=== PATIENT | female | born 1965 | race Caucasian/White ===

== ENCOUNTER → 2017-11-21 09:29 | Outpatient (CLI) | payer OTHER, SELFPAY ==
[2017-11-21 11:45] LABS: Free T3 2.4 pg/mL (2.18-3.98); T4 Free Direct 1.35 ng/dL (0.76-1.46); Thyroid Stim Hormone (TSH) 2.01 uIU/mL (0.358-3.74)
== END ==
PROVIDERS: Family Provider Internal Medicine; PCP Internal Medicine; Visit Provider Nurse Practitioner
DX: E07.9 Disorder of thyroid, unspecified (principal)
CPT/HCPCS: 36415; 84439; 84443; 84481

== ENCOUNTER → 2018-02-07 11:06 | Outpatient (CLI) | payer OTHER, SELFPAY ==
--- NOTE | 2018-02-07 11:09 | US_ITS ---
STUDY: THYROID ULTRASOUND REASON FOR EXAM: Female, 52 years old. Hypothyroidism TECHNIQUE: Ultrasound evaluation of the thyroid was performed with real-time and static chong-scale imaging. COMPARISON: 06/29/2016 FINDINGS: RIGHT LOBE: The right lobe of the thyroid gland measures 2.5 x 1.1 x 0.6 cm. There is a heterogeneous echotexture. There are no demonstrated solid, cystic or complex lesions. LEFT LOBE: The left lobe of the thyroid gland measures 2.1 x 0.8 x 0.5 cm. There is a heterogeneous echotexture. There are no demonstrated solid, cystic or complex lesions. ISTHMUS: The isthmus measures 1.0 mm. The regional lymph nodes are normal. US/Thyroid IMPRESSION: 1. No solid or cystic thyroid nodules. 2. Small, heterogeneous thyroid gland suggesting chronic thyroiditis. Electronically Signed: Cesario Pink MD at 17:56 EDT , Service support ,
== END ==
PROVIDERS: Family Provider Internal Medicine; PCP Internal Medicine; Visit Provider Nurse Practitioner
DX: E03.9 Hypothyroidism, unspecified (principal)
CPT/HCPCS: 76536

== ENCOUNTER → 2021-03-01 07:45 | Outpatient (CLI) | payer OTHER, SELFPAY ==
--- NOTE | 2021-03-01 07:49 | BI_ITS ---
MAMMOGRAPHY - BILATERAL SCREENING 3-D TOMOSYNTHESIS REASON FOR EXAM: Female, 55 years old. SCREENING PERTINENT HISTORY: No significant family history. TECHNIQUE: 2-D mammograms and 3-D Tomosynthesis of the breast (s) were performed. CAD was performed. COMPARISON: 03/31/2015 FINDINGS: The breast composition is composed of scattered fibroglandular density. Scattered benign calcifications are seen. No dense spiculated masses or suspicious microcalcifications are identified. No architectural distortion is identified. There is no skin thickening or retraction. There has been no significant change since the prior study. BI/SCRN MAMM (CAD)W/ISAIAH BILAT IMPRESSION: No mammographic signs of malignancy. Routine yearly mammograms recommended. ASSESSMENT CATEGORY: BIRADS Category 1: Negative. A letter regarding these results will be sent to the patient by the facility within 30 days. FOLLOW UP RECOMMENDATION: Yearly follow up mammogram recommended. (A) Approximately 10% of breast cancers are not detected by mammography. A normal mammogram should not delay biopsy of a clinically suspicious abnormality. Electronically Signed: Wil Amato MD at 9:22 EDT Tel , Service support ,
== END ==
PROVIDERS: PCP Internal Medicine; Referring Provider Internal Medicine; Visit Provider Internal Medicine
DX: Z12.31 Encounter for screening mammogram for malignant neoplasm of breast (principal)
CPT/HCPCS: 77063; 77067

== ENCOUNTER 2021-11-26 08:19 | Day surgery (SDC) | payer OTHER, SELFPAY ==
[2021-11-26] VITALS (8 sets, daily range): BP systolic 85–119; BP diastolic 58–82; PULSE 69–78; RESP 18; TEMP 36.5–36.6; O2SAT 96–100; BMI 36.6
[2021-11-26] MEDS: Lactated Ringers 1,000 ML 15 ML IV (08:30)
--- NOTE | 2021-11-26 08:57 | PCM.HP.BLA ---
History and Physical Date of Admission: 11/26/21 Intake Visit Reasons: COLONOSCOPY AND HERNIA Chief Complaint: c-scope/ umb hernia Boat Worker Required: No Is patient in pain?: No Allergies levofloxacin [From Levaquin] Allergy (Intermediate, Verified 09/16/21 08:29) hives methimazole [From Tapazole] Allergy (Intermediate, Verified 09/16/21 08:29) hives Sulfa (Sulfonamide Antibiotics) Allergy (Unknown, Verified 09/16/21 08:29) Unknown Medications aspirin 81 mg tablet,delayed release 81 mg PO QDAY 11/21/17 [History Confirmed 09/16/21] calcium carbonate 600 mg calcium (1,500 mg) tablet 600 mg PO QDAY tab 11/21/17 [History Confirmed 09/16/21] carvedilol 12.5 mg tablet 12.5 mg PO BID 11/21/17 [History Confirmed 09/16/21] cholecalciferol (vitamin D3) 50 mcg (2,000 unit) capsule 2,000 unit PO QDAY 11/21/17 [History Confirmed 09/16/21] calcitriol 0.25 mcg capsule 0.25 mcg PO QDAY 12/21/17 [History Confirmed 09/16/21] pantoprazole 40 mg tablet,delayed release ea PO 07/16/21 [History Confirmed 09/16/21] levothyroxine 112 mcg capsule 112 mcg PO DAILY 09/16/21 [History Confirmed 09/16/21] [facility] Medical History Cardiomyopathy H/O blood clots H/O transfusion of whole blood Hives Hypothyroidism Obesity Parathyroid abnormality Seasonal allergies Vitamin D deficiency Surgical History femur surgery H/O right heart catheterization Family History Mother Arthritis Father Arthritis Heart disease Kidney disease CVA (cerebral vascular accident) Cancer Sister Cancer Breast cancer Other Alcohol abuse Colon cancer Osteoporosis Thyroid disorder Social History Smoking Status: Never smoker second hand exposure: No alcohol intake: current alcohol intake frequency: a few times a month Alcohol type: beer substance use type: does not use what type of physical activity do you participate in: walking frequency: 1-2 times per week HPI HPI HPI: FEDE MONTANEZ, is a 56 F who presents to the office today for surgical consultation regarding a screening colonoscopy and a hernia. The patient is referred by Dr. Eduarda Baeza and a written copy my surgical consult recommendations will return to him. The patient was to present via open access. Patient has a sister who from colorectal cancer. The patient is on a low-dose aspirin. She is complaining of abdominal pain but states that this is secondary to her hernias. Because of her additional issues it was felt best for the patient to be seen in the office prior to her colonoscopy. Patient has she is quite complex. She has ongoing gastroesophageal reflux disease. She requires proton pump inhibitor therapy or she gets severe heartburn. She has abdominal pain complaints. She has had to do a lot of caretaking at home of older relatives. And she will complain of pain right at the umbilical area. Dating back to March 01, 2018 at [facility] she had a CT scan of the abdomen pelvis. That was otherwise unremarkable except for a small fat-containing umbilical hernia. She had some degenerative changes of the lumbar spine. She herself cannot feel the umbilical hernia. She has never liked her umbilicus touched. She is complaining of tenderness of the right medial malleolar area. She did start a low-dose aspirin. She has had what sounds like a previous history of deep venous thrombosis several years ago and states that she was on Lovenox injections for a month. She states that she has been previously measured and fitted for support hose but that they have never fit her appropriately. She does occasionally use an Benjamin wrap. She has been referred to Dr. Beka Hamilton. She has not yet received a phone call from that office. She has had Covid-19 twice. Once in June 2020 which she had cough and shortness of breath. Then again July 2021 with diarrhea achiness cough. She did take monoclonal antibody on this occasion. She feels that she is markedly improved but still has occasional cough. She denies any bright red blood per rectum or melena. No change in bowel caliber. No unexpected weight loss. ROS General General: No weight change, appetite, fatigue, colon cancer, breast cancer or weakness HEENT HEENT: No difficulty swallowing, eye injury, eye surgery, swollen glands or hoarseness Endo Endocrine: Yes thyroid disease; No diabetes mellitus, thyroid cancer, Hair loss, heat intolerance or cold intolerance Skin Skin: No rash or changing moles Breast Breast: No left breast lump, right breast lump, nipple discharge, breast pain, abnormal mammogram, abnormal US or breast enlargement Musc Musculoskeletal: No back problems, arthritis, rheumatoid arthritis, gout or joint pain Cardio Cardiovascular: No murmur, pacemaker, heart disease, atrial fibrillation, high blood pressure, heart attack, heart stent, palpitations, shortness of breat with exertion or chest pain Psych Psychiatric: No depression, anxiety or hearing voices Resp Respiratory: Yes shortness of breath, Yes sleep apnea, No cough, No COPD, No asthma, No emphysema and No wheezing Gastro Gastrointestinal: Yes abdominal pain, No nausea or vomiting, Yes diarrhea, No constipation, No blood in stool, Yes acid reflux, No hemorrhoids, No ulcers, No gallbladder problem and No black,tarry stools Valente Hematologic: No blood thinners, No blood disorders, No bleeding, No anemia and Yes blood clots Neuro Neurologic: No system reviewed and no additional complaints, except as documented, No as per HPI, No abnormal gait, No abnormal hearing, No abnormal movements, No abnormal speech, No behavioral changes, No burning sensations, No confusion, No convulsions, No disequilibrium, No dizziness, No localized weakness, No frequent falls, No headache(s), No lack of coordination, No loss of vision, No memory loss, No numbness, No other visual disturbances, No radicular pain, No restless legs, No sensory deficit, No syncope, No tingling, No tremor(s), No weakness and No other Exam Const General: cooperative and no acute distress Nutritional Appearance: obese morbidly obese [facility] Head: normal to inspection Eyes General: appearance normal, both eyes and all related structures Neck Neck: normal visual inspection Resp Effort & Inspection: normal respiratory effort Auscultation: clear to auscultation bilaterally Cardio Rate: regular rate Rhythm: regular rhythm GI Other: Patient examined both upright and supine. Focal tenderness directly at the umbilicus. Suggestion of a deeply placed Other: No gross inguinal defects noted Musc Cervical Spine: normal cervical lordosis Neuro General: patient alert and patient awake Extrem General: no calf tenderness Other: Right medial malleolus focal area of superficial induration and tenderness. Psych Appearance: grossly normal Assessment and Plan Assessment and Plan (1) Obesity: Status: Acute Qualifiers: Body mass index: BMI 37.0-37.9 Obesity classification: adult class 2 (BMI 35 - 39.9) Obesity type: due to excess calories Serious obesity comorbidity presence: without serious comorbidity Qualified Code(s): E66.09 - Other obesity due to excess calories; Z68.37 - Body mass index [BMI] 37.0-37.9, adult (2) Family history of colon cancer: Status: Acute (3) Thrombophlebitis: Status: Acute (4) GERD (gastroesophageal reflux disease): Status: Acute Qualifiers: Esophagitis presence: esophagitis presence not specified Qualified Code(s): K21.9 - Gastro-esophageal reflux disease without esophagitis (5) History of COVID-19: Status: Acute Plan - Dr. Israel Dean MD: I recommended the patient a combined esophagogastroduodenoscopy with possible biopsy and colonoscopy with possible biopsy or polypectomy as indicated. She has had an opportunity to ask and have questions answered. We will utilize monitored anesthesia care. Clinically the patient has thrombophlebitis of the right medial malleolar area. I did recommend support hose but she states that even with fitting these do not wear well for her. She will continue her low-dose aspirin and use previously recommended Benjamin wrap. We will see if we can assist with her referral to Dr. Beka Hamilton and I will defer the duplex imaging of his choice. Regarding her Covid-19. She is considering future vaccine and this was additionally discussed. Regarding her umbilical hernia. At rest it is comfortable. It is only with straining that it symptomatic. Clinically and based upon the previous CT report there does not appear to be bowel involvement. The patient is aware that she would be at increased perioperative risk of hernia recurrence secondary to body habitus. Encouragement was provided for weight loss prior to potential surgical intervention. She has had an opportunity to ask and have questions answered. I very much appreciate the kind opportunity of assisting with her surgical care. Copy: Dr. Eduarda Dean M.D., F.A.C.S. I have re-examined the patient. There are no clinical changes since date of exam.
--- NOTE | 2021-11-26 09:15 | IMM_PTH ---
PATIENT: FEDE MONTANEZ LOC: EN U#:[id number] AGE/SX: 56/F ROOM: RE11/26/[address]: Dr. Israel Dean MD : 1965 BED: DIS: 11/26/2021 SPEC #: [id number] RECD: 11/30/21 09:40 STATUS: VIRGIL REClinton #: [id number] CASE: 11/26/21 09:[address]: Israel Dean DEPT: IMMUNOHISTOCHEMISTRY RECD BY: Earline Wilson ENTERED: 11/30/21 09:40 SP TYPE: IMMUNO OTHR DR: Dr. Eduarda Baeza MD Tissues: A - Stomach, NOS C - Esophagus, NOS Procedures: H Pylori (initial) P53 (initial) KI-67 (add) PHYSICIAN & INSTITUTION [place] [address] SPECIMEN INFORMATION: Tissue Source: A ? Antrum biopsy, C ? Distal esophagus biopsy Clinical Info: GERD Specimen Number: [id number] A & C CPT code: 45362 x2, 92461 METHODOLOGY: Deparaffinized sections of prefer/formalin-fixed tissue or PAP/DQ stained slides are incubated with monoclonal/polyclonal antibodies/oligonucleotide probes. Localization is made via biotin free immunoperoxidase method. Appropriate controls are performed and reacted as expected. Results on target cell population are indicated in the following table: RESULTS: ANTIBODY / CLONE RESULT Block A H Pylori (polyclonal) negative Block C P53 (DO-7) negative Ki-67 (30-9) positive, low These tests were developed and their performance characteristics determined by [facility]. They may not have been cleared or approved by the U.S. Food and Drug Administration. The FDA has determined that such clearance or approval is not necessary. The above immunohistochemical/dualISH markers are ordered and reviewed by the Pathologist. INTERPRETATION: A. Antrum, biopsy: Negative for Helicobacter pylori organisms. C. Distal esophagus, biopsy: No evidence of dysplasia. AM:rashel 12/02/2021
--- NOTE | 2021-11-26 09:15 | EGD_PTH ---
PATIENT: FEDE MONTANEZ LOC: EN U#:[id number] AGE/SX: 56/F ROOM: RE11/26/[address]: Dr. Israel Dean MD : 1965 BED: DIS: 11/26/2021 SPEC #: [id number] RECD: 11/30/21 06:36 STATUS: VIRGIL ESPAÑA #: [id number] CASE: 11/26/21 09:[address]: Israel Dean DEPT: SURGICAL PATHOLOGY RECD BY: Zulay Ray ENTERED: 11/30/21 06:38 SP TYPE: EGD BIOPSY OTHR DR: Dr. Eduarda Baeza MD Tissues: A - Gastric mucous membrane B - Stomach, NOS C - Esophagus, NOS D - Esophagus, NOS E - Rectum, NOS Procedures: Special Stain Group II Surgery Specimen Level IV Alcian Blue/PAS (control) HEADER OPERATION: Colonoscopy with polyp removal, EGD with biopsy ([facility] [place]) PRE-OP DIAGNOSIS: GERD TISSUE SUBMITTED: A ? Antrum biopsy for path and H. pylori, B ? Greater curvature polyp biopsy, C ? Distal esophagus biopsy, D ? Mid esophagus biopsy, E ? Rectal polyp MICROSCOPIC DIAGNOSIS A. Gastric antrum, biopsy: Chronic gastritis. See comment. B. Gastric greater curvature polyp, biopsy: Fundic gland polyp. C. Distal esophagus, biopsy: Gastroesophageal junctional mucosa with focal goblet cell metaplasia. No evidence of dysplasia. See comment. D. Mid esophagus, biopsy: No pathologic change. E. Rectal polyp, biopsy: Tubular adenoma. AM:rashel 12/01/2021 COMMENT A. The results of immunohistochemistry for Helicobacter pylori will be reported separately ([id number]). C. Alcian blue/PAS stain with matched control supports the above diagnosis. Immunohistochemistry ([id number]) for P53 and Ki-67 will be performed and results will be reported separately. MICROSCOPIC DESCRIPTION Slides are reviewed. GROSS DESCRIPTION A - Received in fixative is one container labeled with the patient's name and designated antrum biopsy. The specimen consists of one irregular fragment of light nance soft tissue that measures 0.6 x 0.3 x 0.1 cm. The specimen is totally submitted in one cassette. B - Received in fixative is one container labeled with the patient's name and designated greater curvature polyp biopsy. The specimen consists of one irregular fragment of light nance soft tissue that measures 0.6 x 0.2 x 0.1 cm. The specimen is totally submitted in one cassette. C - Received in fixative is one container labeled with the patient's name and designated distal esophagus biopsy. The specimen consists of two irregular fragments of light nance soft tissue that in aggregate measure 1 x 0.6 x 0.1 cm. The specimen is totally submitted in one cassette. D - Received in fixative is one container labeled with the patient's name and designated mid esophagus biopsy. The specimen consists of one irregular fragment of light nance soft tissue that measures 0.6 x 0.3 x 0.1 cm. The specimen is totally submitted in one cassette. E - Received in fixative is one container labeled with the patient's name and designated rectal polyp. The specimen consists of one irregular fragment of light nance soft tissue that measures 1 x 0.5 x 0.3 cm. The specimen is bisected and totally submitted in one cassette. / AM:rashel 11/30/2021 TC:3 CPT: 56418 x5, 83367
--- NOTE | 2021-11-26 10:24 | OP.EGD_ITS ---
Patient Name: Rusty Kessler Procedure Date: 11/26/2021 9:34 AM Date of : 1965 Age: 56 Procedure: Upper GI endoscopy Indications: Globus sensation Providers: Israel Dean MD Medicines: See the Anesthesia note for documentation of the administered medications Complications: No immediate complications. Procedure: Pre-Anesthesia Assessment: - Prior to the procedure, a History and Physical was performed, and patient medications and allergies were reviewed. The patient's tolerance of previous anesthesia was also reviewed. The risks and benefits of the procedure and the sedation options and risks were discussed with the patient. All questions were answered, and informed consent was obtained. Prior Anticoagulants: The patient has taken no previous anticoagulant or antiplatelet agents. ASA Grade Assessment: III - A patient with severe systemic disease. After reviewing the risks and benefits, the patient was deemed in satisfactory condition to undergo the procedure. After obtaining informed consent, the endoscope was passed under direct vision. Throughout the procedure, the patient's blood pressure, pulse, and oxygen saturations were monitored continuously. The colonoscope was introduced through the mouth, and advanced to the second part of duodenum. The upper GI endoscopy was accomplished without difficulty. The patient tolerated the procedure well. Scope In: 9:46:38 AM Scope Out: 9:54:06 AM Total Procedure Duration Time 0 hours 7 minutes 28 seconds Findings: Esophagitis with no bleeding was found 40 cm from the incisors. Biopsies were taken with a cold forceps for histology. The middle third of the esophagus was normal. Biopsies were taken with a cold forceps for histology. A small hiatal hernia was present. Diffuse mildly erythematous mucosa without bleeding was found in the gastric antrum. Biopsies were taken with a cold forceps for histology. Multiple sessile polyps with no bleeding and no stigmata of recent bleeding were found on the greater curvature of the stomach. The polyp was removed with a cold biopsy forceps. Resection and retrieval were complete. The examined duodenum was normal. Impression: - Reflux esophagitis.Very minimal. Biopsied. - Normal middle third of esophagus. Biopsied. - Small hiatal hernia. - Erythematous mucosa in the antrum. Biopsied. - Multiple gastric polyps. Resected and retrieved. - Normal examined duodenum. 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 Inflammation very mild. Normal mid esophagus..Await biopsy results distally and mid. Recommendation: - Telephone my office for pathology results in 1 week. - Discharge patient to home. - Resume previous diet. - Continue present medications. Procedure Code(s): --- Professional --- 10363, Esophagogastroduodenoscopy, flexible, transoral; with biopsy, single or multiple Diagnosis Code(s): --- Professional --- K21.0, Gastro-esophageal reflux disease with esophagitis K44.9, Diaphragmatic hernia without obstruction or gangrene K31.89, Other diseases of stomach and duodenum K31.7, Polyp of stomach and duodenum F45.8, Other somatoform disorders CPT copyright 2017 [employer]. All rights reserved. The codes documented in this report are preliminary and upon open pit quarry supervisor review may be revised to meet current compliance requirements. Israel Dean MD 11/26/2021 10:23:44 AM This report has been signed electronically. Number of Addenda: 0 Note Initiated On: 11/26/2021 9:34 AM
--- NOTE | 2021-11-26 10:24 | OP.CCLET_ITS ---
11/26/2021 Eduarda Baeza Re : Upper GI endoscopy procedure for Rusty Kessler Dear Felisha This procedure was performed on Friday, November 26, 2021. My impressions and recommendations are as follows: Impressions : - Reflux esophagitis.Very minimal. Biopsied. - Normal middle third of esophagus. Biopsied. - Small hiatal hernia. - Erythematous mucosa in the antrum. Biopsied. - Multiple gastric polyps. Resected and retrieved. - Normal examined duodenum. 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 Inflammation very mild. Normal mid esophagus..Await biopsy results distally and mid. Recommendations : - Telephone my office for pathology results in 1 week. - Discharge patient to home. - Resume previous diet. - Continue present medications. My findings are described in the full procedure note, which is enclosed. If I can be of further assistance, please feel free to contact me at Doctor phone number(s): Work: . Sincerely, Israel Dean MD 11/26/2021 10:23:44 AM This report has been signed electronically.
--- NOTE | 2021-11-26 10:27 | OP.COLON_ITS ---
Patient Name: Rusty Kessler Procedure Date: 11/26/2021 9:55 AM Date of : 1965 Age: 56 Procedure: Colonoscopy Indications: Screening for colorectal malignant neoplasm Providers: Israel Dean MD Medicines: See the Anesthesia note for documentation of the administered medications Patient Profile: Last Colonoscopy: none. The patient's first colonoscopy is today. Complications: No immediate complications. Procedure: Pre-Anesthesia Assessment: - Prior to the procedure, a History and Physical was performed, and patient medications and allergies were reviewed. The patient's tolerance of previous anesthesia was also reviewed. The risks and benefits of the procedure and the sedation options and risks were discussed with the patient. All questions were answered, and informed consent was obtained. Prior Anticoagulants: The patient has taken no previous anticoagulant or antiplatelet agents. ASA Grade Assessment: III - A patient with severe systemic disease. After reviewing the risks and benefits, the patient was deemed in satisfactory condition to undergo the procedure. After I obtained informed consent, the scope was passed under direct vision. Throughout the procedure, the patient's blood pressure, pulse, and oxygen saturations were monitored continuously. The adult colonoscope was introduced through the anus and advanced to the cecum, identified by appendiceal orifice and ileocecal valve. The colonoscopy was somewhat difficult. The patient tolerated the procedure well. The quality of the bowel preparation was good. The ileocecal valve and the appendiceal orifice were photographed. Scope In: 9:58:48 AM Scope Withdrawal Time 0 hours 12 minutes 10 seconds Scope Out: 10:17:30 AM Total Procedure Duration Time 0 hours 18 minutes 42 seconds Findings: Hemorrhoids were found on perianal exam. lax tone A 12 mm polyp was found in the rectum. The polyp was sessile. The polyp was removed with a hot snare. Resection and retrieval were complete. The exam was otherwise without abnormality. Impression: - Hemorrhoids found on perianal exam. - One 12 mm polyp in the rectum, removed with a hot snare. Resected and retrieved. - The examination was otherwise normal. Recommendation: - Discharge patient to home. - Resume previous diet. - Continue present medications. - Repeat colonoscopy in 3 years for surveillance based on pathology results. - Telephone my office for pathology results in 1 week. Procedure Code(s): --- Professional --- 95764, Colonoscopy, flexible; with removal of tumor(s), polyp(s), or other lesion(s) by snare technique Diagnosis Code(s): --- Professional --- Z12.11, Encounter for screening for malignant neoplasm of colon K64.9, Unspecified hemorrhoids K62.1, Rectal polyp CPT copyright 2017 [employer]. All rights reserved. The codes documented in this report are preliminary and upon analyst business analysis review may be revised to meet current compliance requirements. Israel Dean MD 11/26/2021 10:26:51 AM This report has been signed electronically. Number of Addenda: 0 Note Initiated On: 11/26/2021 9:55 AM
--- NOTE | 2021-11-26 10:27 | OP.CCLET_ITS ---
11/26/2021 Eduarda Baeza Re : Colonoscopy procedure for Rusty Carrr Felisha This procedure was performed on Friday, November 26, 2021. My impressions and recommendations are as follows: Impressions : - Hemorrhoids found on perianal exam. - One 12 mm polyp in the rectum, removed with a hot snare. Resected and retrieved. - The examination was otherwise normal. Recommendations : - Discharge patient to home. - Resume previous diet. - Continue present medications. - Repeat colonoscopy in 3 years for surveillance based on pathology results. - Telephone my office for pathology results in 1 week. My findings are described in the full procedure note, which is enclosed. If I can be of further assistance, please feel free to contact me at Doctor phone number(s): Work: . Sincerely, Israel Dean MD 11/26/2021 10:26:51 AM This report has been signed electronically.
== END 2021-11-26 11:40 | disposition home or self-care (01) ==
LOC: EN 08:20 → AC 08:21
PROVIDERS: PCP Internal Medicine; Referring Provider Internal Medicine; Visit Provider Surgery
PROC: 0DJD8ZZ Inspection of Lower Intestinal Tract, Via Natural or Artificial Opening Endoscopic (ICD-10-PCS; CPT 45378; principal; 2021-11-26 09:10)
DX: Z12.11 Encounter for screening for malignant neoplasm of colon (principal); I42.9 Cardiomyopathy, unspecified; D12.8 Benign neoplasm of rectum; K29.50 Unspecified chronic gastritis without bleeding; K44.9 Diaphragmatic hernia without obstruction or gangrene; K31.7 Polyp of stomach and duodenum; K64.9 Unspecified hemorrhoids; K42.9 Umbilical hernia without obstruction or gangrene; K62.1 Rectal polyp; K21.00 Gastro-esophageal reflux disease with esophagitis, without bleeding; E03.9 Hypothyroidism, unspecified; E66.09 Other obesity due to excess calories; Z68.37 Body mass index [BMI] 37.0-37.9, adult; Z79.82 Long term (current) use of aspirin; Z79.890 Hormone replacement therapy; Z79.899 Other long term (current) drug therapy; Z80.0 Family history of malignant neoplasm of digestive organs
CPT/HCPCS: 45385; 43239; 88305; 88313; 88341; 88342; J7120; J2405

== ENCOUNTER → 2023-01-09 | Outpatient (CLI) | payer OTHER, SELFPAY ==
--- NOTE | 2023-01-09 09:04 | VDLE_ITS ---
Reason For Study: Pain BLE RIGHT LEFT CFV is compressible, spontaneous, phasic, GSV is normal. competent and demonstrates normal CFV is compressible, spontaneous, phasic, augmentation. competent, and demonstrates normal FV is compressible, spontaneous, phasic, augmentation. competent and demonstrates normal FV is compressible, spontaneous, phasic, augmentation. competent and demonstrates normal POP V is compressible, phasic, and augmentation. INCOMPETENT for greater than 1.0 second. POP V is compressible, spontaneous, phasic, T/P Trunk is compressible. competent and demonstrates normal PTV is compressible. augmentation. RT PerV is compressible. T/P Trunk is compressible. Rt GastrocV is partially compressible with PTV is compressible. bright intraluminal echoes consistent with LT PerV is compressible. chronic DVT. SFJ is competent and measures 0.71cm x 0.77 SFJ is competent and measures 0.75cm x 0.76 cm. cm. GSV proximal thigh measures 0.51cm x 0.50 cm. GSV proximal thigh measures 0.54cm x 0.56 cm. GSV is competent throughout. GSV at knee measures 0.44cm x 0.44 cm. SSV proximal calf is competent and measures GSV above knee is competent. 0.27cm x 0.24 cm. GSV below knee is INCOMPETENT for greater than 0.5 seconds. SSV proximal calf is competent and measures 0.32cm x 0.31 cm. VL/Venous Duplex US - Devyn Extrem Interpretation Summary Chronic deep vein thrombosis is noted in the right gastrocnemius vein. Deep veins of the left lower extremity are patent and compressible segmentally. There is no evidence of left lower extremity deep vein thrombosis. The left great saphenous vein cher ears patent and compressible segmentally. Positive for reflux in the right popliteal vein, great saphenous vein Ordering Physician: Mateus Iraheta Referring Physician: Eduarda Baeza Performed By: Magdalena Cummings, BAY, RVT
== END | disposition home or self-care (01) ==
LOC: CVS 09:03
PROVIDERS: PCP Internal Medicine; Referring Provider Surgery Trauma Surgery; Visit Provider Surgery Trauma Surgery
DX: I82.561 Chronic embolism and thrombosis of right calf muscular vein (principal)
CPT/HCPCS: 93970